=== PATIENT | male | born 1975 | race Native Hawaiian/Other Pacific Islander ===

== ENCOUNTER 2016-09-08 09:59 | Outpatient (CLI) | payer OTHER | END 2016-09-08 19:39 | disposition home or self-care (01) | LOC: RAD 09:59 | DX: M54.2 Cervicalgia (principal); M54.5 Low back pain; M25.552 Pain in left hip; M25.562 Pain in left knee ==

== ENCOUNTER 2016-11-03 12:36 | Emergency (ER) | payer OTHER ==
[~2016-11-03] VITALS: Ht 165.1 cm; Wt 61.7 kg
[2016-11-03 12:46] VITALS: TEMP 97.5
[2016-11-03 13:22] LABS: PLATELET COUNT 369 K/uL (142-355)
[2016-11-03 13:54] LABS: POTASSIUM 3.4 mmol/L (3.6-5.2); SODIUM 137 mmol/L (136-145)
[2016-11-03 16:30] VITALS: BP 128/88
== END 2016-11-03 16:50 | disposition home or self-care (01) ==
LOC: ED 12:36
DX: R19.7 Diarrhea, unspecified (principal); R11.2 Nausea with vomiting, unspecified; E86.0 Dehydration; R10.9 Unspecified abdominal pain; E86.9 Volume depletion, unspecified
CPT/HCPCS: 36415; 80053; 80307; 81000; 82150; 83690; 85027; 96374; 99284; G0479; J2405; Q9963

== ENCOUNTER 2016-11-04 15:44 | Emergency (ER) | payer OTHER ==
[~2016-11-04] VITALS: Ht 165.1 cm; Wt 61.2 kg
[2016-11-04 16:15] VITALS: BP 128/90; TEMP 98.4
== END 2016-11-04 15:46 | disposition home or self-care (01) ==
LOC: ED 15:44
DX: M79.602 Pain in left arm (principal); T80.89XA Other complications following infusion, transfusion and therapeutic injection, initial encounter
CPT/HCPCS: 99281

== ENCOUNTER 2022-02-12 13:50 | Emergency (ER) | payer OTHER ==
[~2022-02-12] VITALS: Ht 165.1 cm; Wt 68.0 kg
[2022-02-12 13:56] VITALS: TEMP 98.7
[2022-02-12 16:18] VITALS: BP 169/100
== END 2022-02-12 16:19 | disposition home or self-care (01) ==
LOC: ED 13:50
DX: M25.512 Pain in left shoulder (principal)
CPT/HCPCS: 96372; 99283; J1100; J1885; J2360

== ENCOUNTER 2022-05-24 07:48 | Outpatient (CLI) | payer OTHER | END 2022-05-24 18:55 | disposition home or self-care (01) | LOC: CT 07:48 | PROVIDERS: ATTEND Nurse Practitioner Family | DX: M25.512 Pain in left shoulder (principal); G56.90 Unspecified mononeuropathy of unspecified upper limb; R29.898 Other symptoms and signs involving the musculoskeletal system ==